=== PATIENT | male | born 1975 | race Caucasian/White ===

== ENCOUNTER 2018-02-19 21:31 | Inpatient (IN) | payer OTHER ==
[~2018-02-19] VITALS: Ht 182.9 cm; Wt 118.3 kg
[~2018-02-19 21:31] MED LIST: MEN'S ONE DAIL1 EACH PO
[2018-02-20 06:13] VITALS: BP 140/80
[2018-02-20 06:17] VITALS: BP 140/80
[2018-02-20 14:56] VITALS: BP 133/77
[2018-02-20 16:00] VITALS: BP 133/77
[2018-02-20 19:09] VITALS: BP 122/60
[2018-02-20 23:41] VITALS: BP 101/49
[2018-02-21 03:30] VITALS: BP 100/53
[2018-02-21 07:38] VITALS: BP 123/59
[2018-02-21 11:10] VITALS: BP 122/59
[2018-02-21 15:33] VITALS: BP 115/64
[2018-02-21] MEDS ORDERED: PERCOCET 7.51 TABLET PO (17:55)
[2018-02-21] MEDS ORDERED: ZANAFLEX4 MG PO (17:56)
== END 2018-02-21 18:19 | disposition home or self-care (01) | DRG 460 ==
LOC: ENRESERV 21:31 → 2SOUTH 02-20 05:35 → ENRESERV 02-20 14:13 → 3EAST 02-20 14:34 → 2SOUTH 02-20 15:02 → 3EAST 02-21 18:19
PROC: 0SG30A0 Fusion of Lumbosacral Joint with Interbody Fusion Device, Anterior Approach, Anterior Column, Open Approach (ICD-10-PCS; principal; 2018-02-20)
DX: M99.03 Segmental and somatic dysfunction of lumbar region (principal); M51.37 Other intervertebral disc degeneration, lumbosacral region; M47.816 Spondylosis without myelopathy or radiculopathy, lumbar region; M48.061 Spinal stenosis, lumbar region without neurogenic claudication; M54.16 Radiculopathy, lumbar region; M12.88 Other specific arthropathies, not elsewhere classified, other specified site; Z98.890 Other specified postprocedural states
CPT/HCPCS: 72100; 76000; J0330; J0690; J1170; J1885; J2250; J2405; J3010; J3480